=== PATIENT | male | born 1990 | race Caucasian/White ===

== ENCOUNTER 2017-03-23 19:52 | Emergency (ER) | payer SELFPAY ==
[2017-03-23 20:07] VITALS: BP 100/74; TEMP 98.6; O2SAT 97
[2017-03-23] MEDS ORDERED: SULFA/TRIMETH 800/160 (DS) TAB 1 EA TAB PO ONE (20:32)
--- NOTE | 2017-03-23 20:32 | RAD ---
EXAM DESCRIPTION: Scapula,Left CLINICAL HISTORY: 26 years Male looking for gravel just under the skin surface COMPARISON: None. TECHNIQUE: LEFT SCAPULA, TWO view FINDINGS: No acute fractures or dislocations identified. No osseous destructive lesions. Acromioclavicular joint appears maintained. No definite foreign objects in the subcutaneous soft tissues IMPRESSION: No definite foreign objects noted Electronically signed by: Christina Telles 03/23/2017 8:30 PM CDT
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
== END 2017-03-23 20:47 | disposition home or self-care (01) ==
LOC: ER 19:52
DX: L03.312 Cellulitis of back [any part except buttock and flank] (principal); Z87.891 Personal history of nicotine dependence